=== PATIENT | female | born 1965 | race Caucasian/White ===

== ENCOUNTER 2020-04-26 11:17 | Outpatient (RCR) | payer BC, SELFPAY | END 2020-05-10 23:59 | LOC: EMPH 11:17 | PROVIDERS: Visit Provider Family Medicine Geriatric Medicine | DX: Z11.59 Encounter for screening for other viral diseases (principal) | CPT/HCPCS: 87635; U0003 ==

== ENCOUNTER 2020-06-08 08:47 | Outpatient (RCR) | payer BC, SELFPAY | END 2020-06-10 23:59 | LOC: EMPH 08:47 | PROVIDERS: Visit Provider Family Medicine Geriatric Medicine | DX: Z03.818 Encounter for observation for suspected exposure to other biological agents ruled out (principal) | CPT/HCPCS: 87426 ==

== ENCOUNTER 2020-07-05 10:27 | Outpatient (RCR) | payer BC, SELFPAY | END 2020-07-10 23:59 | LOC: EMPH 10:27 | PROVIDERS: Visit Provider Family Medicine Geriatric Medicine | DX: Z03.818 Encounter for observation for suspected exposure to other biological agents ruled out (principal) | CPT/HCPCS: 87426 ==

== ENCOUNTER 2020-08-09 14:42 | Outpatient (RCR) | payer BC, SELFPAY | END 2020-08-10 23:59 | LOC: EMPH 14:42 | PROVIDERS: Referring Provider Family Medicine Geriatric Medicine; Visit Provider Family Medicine Geriatric Medicine | DX: Z03.818 Encounter for observation for suspected exposure to other biological agents ruled out (principal) | CPT/HCPCS: 87426 ==

== ENCOUNTER 2020-09-08 08:36 | Outpatient (RCR) | payer BC, SELFPAY | END 2020-09-10 23:59 | LOC: EMPH 08:36 | PROVIDERS: Referring Provider Family Medicine Geriatric Medicine; Visit Provider Family Medicine Geriatric Medicine | DX: Z03.818 Encounter for observation for suspected exposure to other biological agents ruled out (principal) | CPT/HCPCS: 87426 ==